=== PATIENT | female | born 1970 | race Caucasian/White ===

== ENCOUNTER 2016-03-03 09:50 | Emergency (ER) | payer MEDICARE ==
[2016-03-03 10:00] VITALS: O2SAT 97
--- NOTE | 2016-03-03 10:18 | ERPHSYRPT ---
- History of Present Illness Time Seen by Provider: 03/03/16 10:05 Source: patient, family Exam Limitations: no limitations Patient Subjective Stated Complaint: pt states on 03/02/16 she injured left foot on her deck. pt c/o pain to medial side of foot and across the top. Triage Nursing Assessment: pt pink, warm, dry. pt arrived to er in wheelchair. able to ambulated with pain. bruising noted to top of foot. no swelling noted. pedal pulse strong. Method of Injury: twisted Occurred: yesterday Quality: constant Severity of Pain-Max: moderate Severity of Pain-Current: moderate Lower Extremities Pain: foot: left Modifying Factors: Improves With: movement Associated Symptoms: snapping sensation, popping sensation Allergies/Adverse Reactions: tetracycline Allergy (Verified 03/03/16 10:00) Home Medications: Albuterol Sulfate [Proair Hfa] 8.5 gm IH BIDPRN PRN 03/03/16 [History] Cholecalciferol (Vitamin D3) [Vitamin D] 400 unit PO DAILY 03/03/16 [History] Clonazepam 0.5 mg [Klonopin 0.5 MG] 0.5 mg PO HS 03/03/16 [History] Hydrocodone Bit/Acetaminophen [[place] 5-325 Tablet] 1 each PO DAILY PRN PRN 03/03 [History] Losartan Potassium [Cozaar 100Mg Tablet] 100 mg PO DAILY 03/03/16 [History] Lubiprostone [Amitiza] 24 mcg PO DAILY 03/03/16 [History] Omeprazole 20 MG [Prilosec 20 mg] 20 mg PO DAILY 03/03/16 [History] Oxymorphone HCl [Opana ER] 15 mg PO BID 03/03/16 [History] Potassium Chloride 10 Meq Tab* [Klor Con 10 MEQ] 20 meq PO DAILY 03/03/16 [ History] Simvastatin 20 mg PO DAILY 03/03/16 [History] Tizanidine HCl 4 mg [Zanaflex 4 MG] 4 mg PO BID 03/03/16 [History] Topiramate [Topamax] 50 mg PO DAILY 03/03/16 [History] Hx Tetanus, Diphtheria Vaccination/Date Given: Yes (up to date) Hx Influenza Vaccination/Date Given: No Hx Pneumococcal Vaccination/Date Given: No Immunizations Up to Date: Yes - Review of Systems Constitutional: No Symptoms Eyes: No Symptoms Ears, Nose, & Throat: No Symptoms Respiratory: No Symptoms Cardiac: No Symptoms Abdominal/Gastrointestinal: No Symptoms Musculoskeletal: Joint Pain, Joint Swelling Skin: No Symptoms Neurological: No Symptoms Psychological: No Symptoms Endocrine: No Symptoms Hematologic/Lymphatic: No Symptoms Immunological/Allergic: No Symptoms - Past Medical History Pertinent Past Medical History: Yes Cardiac History: High Cholesterol, Hypertension - Past Surgical History Past Surgical History: Yes Gastrointestinal: Appendectomy Musculoskeletal: Orthopedic Surgery Other Surgical History: back surgery. partial tyroidectomy - Social History Smoking Status: Current every day smoker How long have you smoked: 25 Exposure to second hand smoke: No Drug Use: none Patient Lives Alone: No - Female History Hx Last Menstrual Period: menopause - Nursing Vital Signs Nursing Vital Signs: Initial Vital Signs Temperature 97.9 F Temperature Source Oral Pulse Rate 101 Respiratory Rate 18 Blood Pressure 163/77 Pain Intensity 7 - Physical Exam General Appearance: mild distress Eyes, Ears, Nose, Throat Exam: normal ENT inspection Neck Exam: normal inspection, non-tender, supple, full range of motion Cardiovascular/Respiratory Exam: chest non-tender, normal breath sounds Gastrointestinal/Abdominal Exam: non-tender, soft Hips Exam: bilateral: non-tender, normal range of motion, no evidence of injury Legs Exam: bilateral leg: non-tender, normal inspection, normal range of motion , no evidence of injury Knees Exam: bilateral knee: non-tender, normal inspection, normal range of motion, no evidence of injury Ankle Exam: bilateral ankle: non-tender, normal inspection, normal range of motion, no evidence of injury Foot Exam: right foot: non-tender, normal inspection, normal range of motion, no evidence of injury, left foot: limited range of motion, pain, soft tissue tenderness, swelling Neuro/Tendon Exam: normal sensation, normal motor functions, normal tendon functions, responds to pain Mental Status Exam: alert, oriented x 3, cooperative Skin Exam: normal color, warm, dry SpO2 Interpretation: normal SpO2: 97 Oxygen Delivery: Room Air - Course Nursing assessment & vital signs reviewed: Yes - Radiology Exams Foot X-ray Interpretation: Discussed w/ radiologist, No Fracture, Other (Stable talonavicular accessory ossicle and tiny plantar heel spur. No new acute abn.) Ordered Tests: Active Orders 24 hr Category Date Time Status FOOT (MINIMUM 3 VIEWS) Stat Exams 03/03/16 10:10 Completed - Progress Progress: unchanged Counseled pt/family regarding: diagnosis, need for follow-up (with PCP 1 week), rad results - Departure Time of Disposition: 10:30 Departure Disposition: Home Clinical Impression: Sprain of foot, left Qualifiers: Encounter type: initial encounter Qualified Code(s): S93.602A - Unspecified sprain of left foot, initial encounter Condition: Stable Critical Care Time: No
--- NOTE | 2016-03-03 10:26 | XRAY ---
Indication: Pain following injury. Comparison: September 28, 2014 3 nonweightbearing views of the left foot demonstrates stable talonavicular accessory ossicle and tiny plantar heel spur. No new/acute bony, articular, or soft tissue abnormalities.
[2016-03-03 10:43] VITALS: BP 127/78; PULSE 95
== END 2016-03-03 10:42 | disposition home or self-care (01) ==
LOC: ED 09:50
DX: S93.602A Unspecified sprain of left foot, initial encounter (principal); X50.1XXA Overexertion from prolonged static or awkward postures, initial encounter
CPT/HCPCS: 73630; 99283